=== PATIENT | female | born 1980 | race Two or more races ===

== ENCOUNTER → 2023-09-17 | Day surgery (SDC) | payer OTHER ==
[2023-09-15 09:14] LABS: URINE APPEARANCE Cloudy; URINE BILIRRUBIN Negative (NEGATIVE); URINE BLOOD Negative; URINE COLOR Yellow; URINE GLUCOSE Negative (NEGATIVE); URINE KETONE Negative (NEGATIVE); URINE LEUKOCYTE Moderate; URINE NITRATE Negative; URINE PROTEIN Negative (NEGATIVE); URINE UROBILINOGEN 0.2 E.U./dl
[2023-09-15 09:15] LABS: URINE BACTERIA 1243.4 uL (0.0-1933); URINE EPITHELIAL CELLS 30.4 uL (0.0-38.8); URINE RBC 2.7 uL (0.0-20.8)
[2023-09-15 09:18] LABS: HEMATOCRIT 35.6 % (36.0-45.00); HEMOGLOBIN 12.1 g/dL (12.0-15.00); MEAN CELL VOLUME 85.1 fL (80.00-100.00); PLATELET COUNT 279 K/uL (150-450); RED BLOOD COUNT 4.19 M/uL (4.00-6.00); RED CELL DISTRIBUTION WIDTH 13.8 % (11.5-14.5)
[2023-09-15 09:43] LABS: INR 0.97; PARTIAL THROMBOPLASTIN TIME 32.9 SECONDS (22.0-34.0); PROTHROMBIN TIME 10.2 SECONDS (9.0-11.5)
[2023-09-15 09:52] LABS: ALBUMIN 3.6 gm/dL (3.4-5.0); BILIRUBIN TOTAL 0.71 mg/dL (0.3-1.2); CALCIUM 9.1 mg/dL (8.5-10.1); CREATININE SERUM 0.72 mg/dL (0.55-1.02); GFR 89.71; GLOBULINA 3.9 G/DL (2.4-3.5); POTASSIUM 4.3 mEq/L (3.5-5.1); TOTAL PROTEIN 7.5 gm/dL (6.4-8.2)
[~2023-09-17] VITALS: Ht 162.6 cm; Wt 77.1 kg
[~2023-09-17] MED LIST: CEFAZOLIN SODIUM 1,000 MG VIAL ONE; CHLORHEXIDINE GLUCONATE 120 ML BOTTLE TOP ONE; DEXAMETHASONE SODIUM PHOSPHATE 4 MG/ML VIAL ONE; ROSUVASTATIN CA10 MG PO; SUGAMMADEX SODIUM 200 MG/2 ML VIAL IV ONE; SYNTHROID137 MCG PO; ZOLOFT50 MG PO
== END | disposition home or self-care (01) ==
LOC: ADM 09-15 15:00 → CIR.AMB 06:40
PROVIDERS: ATTEND Surgery
DX: D24.1 Benign neoplasm of right breast (principal); D48.61 Neoplasm of uncertain behavior of right breast; N60.81 Other benign mammary dysplasias of right breast; N60.21 Fibroadenosis of right breast; E03.9 Hypothyroidism, unspecified